=== PATIENT | female | born 1990 | race Hispanic/Latino ===

== ENCOUNTER 2023-08-27 15:57 | Emergency (ER) | payer MEDICAID, OTHER ==
[~2023-08-27] VITALS: Ht 154.9 cm; Wt 74.8 kg
[~2023-08-27 15:57] MED LIST: PNV1TABL17 PO
[2023-08-27 16:09] VITALS: BP 146/78; PULSE 86; RESP 16
[2023-08-27] MEDS: DIPHENHYDRAMINE HCL 25 MG CAPSULE PO ONE (17:46)
[2023-08-27] MEDS: ACETAMINOPHEN 500 MG TABLET PO ONE (17:47)
== END 2023-08-27 17:52 | disposition home or self-care (01) ==
LOC: EDH 15:57
DX: T63.2X1A Toxic effect of venom of scorpion, accidental (unintentional), initial encounter (principal); F41.9 Anxiety disorder, unspecified; Z90.49 Acquired absence of other specified parts of digestive tract; Y92.89 Other specified places as the place of occurrence of the external cause
CPT/HCPCS: 99283; Q0163

== ENCOUNTER 2024-06-10 21:23 | Observation (INO) | payer MEDICAID ==
[~2024-06-10] VITALS: Ht 154.9 cm; Wt 72.6 kg
[2024-06-10 21:27] VITALS: BP 125/62; PULSE 92; RESP 18; TEMP 98.2
[2024-06-10 21:53] LABS: APPEARANCE,URINE TURBID (CLEAR); BILIRUBIN,URINE NEGATIVE (NEGATIVE); COLOR,URINE YELLOW (YELLOW); GLUCOSE, URINE (UA) NEGATIVE (NEGATIVE); KETONES,URINE NEGATIVE (NEGATIVE); LEUKOCYTE ESTERASE ,URINE 500 Leu/uL (NEGATIVE); NITRATE,URINE 2+ (NEGATIVE); OCCULT BLOOD,URINE MODERATE (NEGATIVE); PROTEIN,URINE 300 mg/dL (NEGATIVE); UROBILINOGEN,URINE 0.2 mg/dL (0.2-1.0)
[2024-06-10 21:56] LABS: ADD UA MICROSCOPIC YES
[2024-06-10 21:58] LABS: BACTERIA,URINE RARE /HPF (None Seen); MUCUS,URINE FEW LPF (None Seen); RBC,URINE TNTC /HPF (0-1); SQUAMOUS EPITHELIAL CELL,UR FEW /HPF (0-2); WBC,URINE TNTC /HPF (0-1)
[2024-06-10] MEDS ORDERED: cefTRIAXone 1G VIAL IM ONE (22:30)
[2024-06-10] MEDS: LACTATED RINGERS 1000ML IV SCH (22:48)
[2024-06-10] MEDS: cefTRIAXone 1G VIAL IVPB ONE (22:48)
== END 2024-06-11 00:40 | disposition home or self-care (01) ==
LOC: EDH 21:23 → LDH 21:24
PROVIDERS: ADMIT Obstetrics & Gynecology; ATTEND Obstetrics & Gynecology
DX: O99.891 Other specified diseases and conditions complicating pregnancy (principal); M54.9 Dorsalgia, unspecified; O26.892 Other specified pregnancy related conditions, second trimester; R10.2 Pelvic and perineal pain; Z3A.26 26 weeks gestation of pregnancy
CPT/HCPCS: 96365; 87086 ×2; 87186; 81001; G0378 ×3; G0379; J0696; 59025; 96360; 96372